=== PATIENT | female | born 1965 | race American Indian/Alaskan Native ===

== ENCOUNTER 2018-08-02 20:00 | Emergency (ER) | payer BC ==
[2018-08-02] MEDS ORDERED: IBUPROFEN ONE (20:41)
--- NOTE | 2018-08-02 20:41 | Emergency Department Report ---
Blank Doc - Documentation Documentation: 52 y/o female fell after knee giving out comes in for right ankle swelling and pain.
[2018-08-02] MEDS ORDERED: IBUPROFEN PO ONE (20:42)
--- NOTE | 2018-08-02 21:48 | XRay Report ---
PROCEDURE: XR KNEE 1-2V RT TECHNIQUE: Right knee 2 views HISTORY: knee pain COMPARISONS: FINDINGS: No fracture identified. No dislocation seen. No evidence for joint effusion. IMPRESSION: Negative knee series. This document is electronically signed by Michel Lopez MD., Aug 02 2018 09:46:50 PM ET
--- NOTE | 2018-08-02 21:55 | XRay Report ---
PROCEDURE: XR ANKLE 3+V RT TECHNIQUE: 3 views of the right ankle HISTORY: ankle injury with swelling pain COMPARISONS: None FINDINGS: There is an obliquely oriented fracture through the distal fibula. The fracture line measures 5 mm wi th posterior displacement of distal bowel with respect to proximal. There is a 1 cm ossicle inferior to the medial malleolus that has a sharp edge that is suspicious for an acute fracture. It is seen on one view only. There is a large plantar calcaneal spur. There is diffuse soft tissue swelling. IMPRESSION: 1. Acute fracture of the distal fibula 2. Suspect acute fracture of the distal tibia This document is electronically signed by Magdalena Acevedo MD., Aug 02 2018 09:53:42 PM ET
[2018-08-02] MEDS ORDERED: PERCOCET 5/325 PO ONE (22:22)
[2018-08-02] MEDS ORDERED: ZOFRAN ODT PO ONE (22:22)
--- NOTE | 2018-08-02 23:32 | Emergency Department Report ---
ED Fall HPI - General Chief Complaint: Extremity Injury, Lower Stated Complaint: RIGHT ANKLE PAIN Time Seen by Provider: 08/02/18 22:15 Source: patient Mode of arrival: Wheelchair Limitations: No Limitations - History of Present Illness Initial Comments: Patient is a 52-year-old female with a history of chronic osteoarthritis and morbid obesity who presents to the ED with complaint of severe right ankle, right knee and foot pain with swelling and deformity of the right ankle after she slipped and fell down at home 4 hours ago. Patient states that she was wearing flip-flops in the house when she slipped and fell down having twisted her right ankle and had a "pop" sound. Patient says that from then on she has not been able to bear weight on the right foot and ankle because of severe pain. Patient denies head or neck injury, back pain, chest pain, shortness of breath, loss of consciousness, syncope, seizures, dizziness, numb ness and tingling or weakness of her right leg, urinary or bowel incontinence. -: Sudden, hour(s) (4), This evening Time: 19:00 Fall From: standing When Fall Occurred: 4-6 hours [employer] Fall Witnessed: yes, by family Place Fall Occurred: home Loss of Consciousness: none Prolonged Down Time?: no Symptoms Prior to Fall: none Location: other (right ankle, foot and knee) Location - Extremities: Right: Knee, Ankle, Foot Severity scale (0 -10): 8 Quality: sharp, aching Context: tripped/slipped Associated Symptoms: denies: headache, neck pain, numbness, weakness, chest paint, shortness of breath, abdominal pain, lightheaded, confusion - Related Data Previous Rx's Medication Instructions Recorded Last Taken Type Cyclobenzaprine [Flexeril] 10 mg PO TID PRN #21 tablet 08/02/18 Unknown Rx Ibuprofen [Motrin] 800 mg PO Q8HR PRN #20 tablet 08/02/18 Unknown Rx Ondansetron [Zofran Odt] 4 mg PO Q8HR #15 tab.rapdis 08/02/18 Unknown Rx Oxycodone HCl/Acetaminophen 1 each PO Q6HR PRN #12 tablet 08/02/18 Unknown Rx [Percocet 7.5/325 mg] Allergies Allergy/AdvReac Type Severity Reaction Status Date / Time No Known Allergies Allergy Unverified 08/02/18 20:17 ED Review of Systems ROS: Stated complaint: RIGHT ANKLE PAIN Other details as noted in HPI Comment: All other systems reviewed and negative Constitutional: no symptoms reported, see HPI. denies: chills, fever Eyes: as per HPI. denies: eye pain, eye discharge ENT: as per HPI. denies: ear pain, throat pain, dental pain, hearing loss, epistaxis Respiratory: no symptoms reported. denies: see HPI, shortness of breath, SOB with exertion Cardiovascular: as per HPI. denies: chest pain, palpitations, syncope, paroxysmal nocturnal dyspnea Endocrine: no symptoms reported, see HPI. denies: excessive sweating, intolerance to cold, increased hunger, increased thirst, increased urine, unexplained weight gain Gastrointestinal: as per HPI. denies: abdominal pain, nausea, vomiting Genitourinary: as per HPI. denies: urgency, dysuria, hematuria Musculoskeletal: as per HPI, joint swelling (right ankle and foot), arthralgia, myalgia, other (Right ankle, knee and foot pain). denies: back pain Skin: as per HPI. denies: rash, lesions, change in hair/nails Neurological: as per HPI. denies: headache, weakness, numbness, paresthesias, abnormal gait Psychiatric: as per HPI. denies: anxiety, depression, auditory hallucinations, visual hallucinations, suicidal thoughts Hematological/Lymphatic: as per HPI ED Past Medical Hx - Past Medical History Previous Medical History?: Yes Hx Hypertension: Yes Hx Arthritis: Yes Additional medical history: High CHO - Surgical History Past Surgical History?: Yes Additional Surgical History: Right foot - Social History Smoking Status: Never Smoker Substance Use Type: None - Medications Home Medications: Home Medications Medication Instructions Recorded Confirmed Last Taken Type Cyclobenzaprine [Flexeril] 10 mg PO TID PRN #21 tablet 08/02/18 Unknown Rx Ibuprofen [Motrin] 800 mg PO Q8HR PRN #20 tablet 08/02/18 Unknown Rx Ondansetron [Zofran Odt] 4 mg PO Q8HR #15 tab.rapdis 08/02/18 Unknown Rx Oxycodone HCl/Acetaminophen 1 each PO Q6HR PRN #12 tablet 08/02/18 Unknown Rx [Percocet 7.5/325 mg] ED Physical Exam - General Limitations: No Limitations General appearance: alert, in no apparent distress - Head Head exam: Present: atraumatic, normocephalic, normal inspection - Eye Eye exam: Present: normal appearance, PERRL, EOMI Pupils: Present: normal accommodation - ENT ENT exam: Present: normal exam, normal orophraynx, mucous membranes moist, TM's normal bilaterally, normal external ear exam - Neck Neck exam: Present: normal inspection, full ROM. Absent: tenderness, lymphadenopathy - Respiratory Respiratory exam: Present: normal lung sounds bilaterally. Absent: respiratory distress, wheezes, chest wall tenderness, accessory muscle use - Cardiovascular Cardiovascular Exam: Present: normal rhythm, tachycardia, normal heart sounds - GI/Abdominal GI/Abdominal exam: Present: soft, normal bowel sounds. Absent: distended, tenderness, hyperactive bowel sounds, hypoactive bowel sounds - Rectal Rectal exam: Present: deferred - Extremities Exam Extremities exam: Present: tenderness (right ankle, foot and knee), joint swelling (right ankle). Absent: calf tenderness - Expanded Lower Extremity Exam Right Knee exam: Present: normal inspection, tenderness. Absent: full ROM (due to pain), swelling, pain w/ pronation/supination, posterior draw sign, pain/laxity with valgus Lower Leg exam: Present: normal inspection, full ROM Ankle exam: Present: tenderness (right ankle tenderness with limited ROM due to pain), swelling, deformity. Absent: full ROM (due to pain) Foot/Toe exam: Present: normal inspection, tenderness. Absent: full ROM (due to pain) Neuro vascular tendon exam: Present: no vascular compromise. Absent: pulse deficit, abnormal cap refill, motor deficit, sensory deficit - Back Exam Back exam: Present: normal inspection, full ROM. Absent: CVA tenderness (R), CVA tenderness (L), muscle spasm, paraspinal tenderness, vertebral tenderness - Neurological Exam Neurological exam: Present: alert, oriented X3, CN II-XII intact, normal gait, reflexes normal - Psychiatric Psychiatric exam: Present: normal affect - Skin Skin exam: Present: warm, dry, intact ED Course Vital Signs 08/02/18 20:34 Temperature 98 F Pulse Rate 107 H Respiratory 20 Rate Blood Pressure 111/87 O2 Sat by Pulse 98 Oximetry - Reevaluation(s) Reevaluation #1: 08/02/18 22:38 Patient is alert and oriented 3 and is not in distress but pain. Patient was treated for pain in the ED and right knee, right ankle and right foot x-rays were performed. On reevaluation, patient's pain is well controlled with medications. ED Medical Decision Making - Radiology Data Radiology results: report reviewed, image reviewed Displaced closed right distal fibula fracture. Distal right tibial fracture. Right foot and right knee x-rays are unremarkable. - Medical Decision Making Patient is alert and oriented 3 and is not in distress. Patient's pain is well controlled and a right knee x-ray shows no acute fractures. Right foot x-ray also shows no acute fractures or subluxations. The right ankle x-ray shows posteriorly displaced distal closed right fibular fracture and distal right tibial fracture. Patient's right ankle was splinted with posterior short leg splint and patient discharged home on pain medications and also fitted with crutches. Patient was referred to the orthopedic surgeon [employer] ground operations supervisor Dr. Rosenthal for follow-up the next day. Patient advised to contact Dr. Rosenthal's office to a broken appointment for follow-up. Patient advised to return to the ED immediately if symptoms get worse. - Differential Diagnosis Right ankle fracture, right foot fracture, right knee sprain Critical care attestation.: If time is entered above; I have spent that time in minutes in the direct care of this critically ill patient, excluding procedure time. ED Disposition Clinical Impression: Closed right fibular fracture Qualifiers: Encounter type: initial encounter Fibula location: distal Fracture morphology: unspecified fracture morphology Qualified Code(s): S82.831A - Other fracture of upper and lower end of right fibula, initial encounter for closed fracture Fracture of ankle, right, closed Qualifiers: Encounter type: initial encounter Qualified Code(s): S82.891A - Other fracture of right lower leg, initial encounter for closed fracture Sprain of right knee/leg Qualifiers: Encounter type: initial encounter Qualified Code(s): S83.91XA - Sprain of unspecified site of right knee, initial encounter Disposition: TO HOME OR SELFCARE Is pt being admited?: No Does the pt Need Aspirin: No Condition: Stable Instructions: Ankle Fracture (ED), Knee Sprain (ED) Additional Instructions: Take medications with food, drink plenty of fluids and follow-up with Dr. Rosenthal as advised. Return to the ED immediately if symptoms get worse. Prescriptions: Cyclobenzaprine [Flexeril] 10 mg PO TID PRN #21 tablet PRN Reason: Muscle Spasm Ibuprofen [Motrin] 800 mg PO Q8HR PRN #20 tablet PRN Reason: Pain , Severe (7-10) Oxycodone HCl/Acetaminophen [Percocet 7.5/325 mg] 1 each PO Q6HR PRN #12 tablet PRN Reason: Pain Ondansetron [Zofran Odt] 4 mg PO Q8HR #15 tab.rapdis Referrals: DEVON PRO MD [Primary Care Provider] - 3-5 Days EAGLE ROSENTHAL MD [Staff Physician] - 3-5 Days Forms: Work/School Release Form(ED) Time of Disposition: 23:43 Print Language: JAPANESE
[2018-08-03] MEDS ORDERED: NORCO 7.5/325 PO ONE (01:09)
[2018-08-03] MEDS ORDERED: ZOFRAN ODT PO ONE (01:09)
[2018-08-03 03:05] VITALS: BP 133/41
== END 2018-08-03 01:05 | disposition home or self-care (01) ==
LOC: ED 20:00
DX: S82.831A Other fracture of upper and lower end of right fibula, initial encounter for closed fracture (principal); S82.891A Other fracture of right lower leg, initial encounter for closed fracture; S83.91XA Sprain of unspecified site of right knee, initial encounter; I10 Essential (primary) hypertension; M19.90 Unspecified osteoarthritis, unspecified site; E78.00 Pure hypercholesterolemia, unspecified; W18.30XA Fall on same level, unspecified, initial encounter; Y93.89 Activity, other specified; Y92.89 Other specified places as the place of occurrence of the external cause; Y99.8 Other external cause status
CPT/HCPCS: Q0162

== ENCOUNTER 2019-04-24 16:48 | Outpatient (CLI) | payer BC ==
[2019-04-24 17:25] LABS: Basophils % (Auto) 0.8 % (0.0-1.8); Eosinophils # (Auto) 0.1 K/mm3 (0.0-0.4); Eosinophils % (Auto) 1.2 % (0.0-4.3); Hematocrit 43.8 % (30.3-42.9); Hemoglobin 14.6 gm/dl (10.1-14.3); Lymphocytes # (Auto) 1.9 K/mm3 (1.2-5.4); Lymphocytes % (Auto) 40.8 % (13.4-35.0); Mean Corpuscular HGB Conc 33 % (30-34); Mean Corpuscular Volume 83 fl (79-97); Monocytes # (Auto) 0.4 K/mm3 (0.0-0.8); Monocytes % (Auto) 8.3 % (0.0-7.3); Platelet Count 320 K/mm3 (140-440); Red Blood Count 5.27 M/mm3 (3.65-5.03); Red Cell Distribution Width 13.7 % (13.2-15.2)
[2019-04-24 17:34] LABS: Bacteria,Urine 1+ /HPF (Negative); Bilirubin,Urine NEG (Negative); Blood,Urine NEG (Negative); Color,Urine Amber (Yellow); Mucus,Urine 2+ /HPF; Urobilinogen,Urine < 2.0 mg/dL (<2.0)
[2019-04-24 17:50] LABS: Alanine Aminotransferase 21 units/L (7-56); Albumin 4.6 g/dL (3.9-5); BUN/Creatinine Ratio 13; Blood Urea Nitrogen 12 mg/dL (7-17); Calcium 10.1 mg/dL (8.4-10.2); Hemolysis Index 22; LDL Cholesterol,Direct 202 mg/dL (50-130)
[2019-04-24 18:04] LABS: Chol/HDL Ratio 4.47 %; HDL Cholesterol 61 mg/dL (40-59)
== END 2019-04-24 16:49 | disposition home or self-care (01) ==
LOC: LAB 16:48
PROVIDERS: ATTEND Internal Medicine
DX: Z00.00 Encounter for general adult medical examination without abnormal findings (principal); Z13.29 Encounter for screening for other suspected endocrine disorder; Z13.21 Encounter for screening for nutritional disorder; E66.01 Morbid (severe) obesity due to excess calories; R73.9 Hyperglycemia, unspecified; E78.5 Hyperlipidemia, unspecified
CPT/HCPCS: 36415; 80053; 80061; 81001; 82607; 83036; 84443; 85025